=== PATIENT | male | born 1980 | race Caucasian/White ===

== ENCOUNTER → 2016-08-02 | Outpatient (CLI) | payer OTHER ==
[2016-08-02 10:05] LABS: Basophils % (A) 1 %; CH 31.5; CHCM 34.6; Eosinophils # (A) 0.1 k/uL (0-0.7); Eosinophils % (A) 3 %; HCT 44.3 % (39.0-53.0); HDW 2.83; HGB 14.8 gm/dL (13.0-17.5); Luc # (Auto) 0.08; Luc % (Auto) 3; Lymphocytes # (A) 1.2 k/uL (1.0-4.8); Lymphocytes % (A) 37 %; MCH 30.6 pg (25.0-35.0); MCHC 33.5 g/dL (31.0-37.0); MCV 91.4 fL (80.0-100.0); Mean Platelet Volume 7.7; Monocytes # (A) 0.3 k/uL (0-1.0); Monocytes % (A) 8 %; Neutrophils # (A) 1.6 k/uL (1.3-7.7); Neutrophils % (A) 49 %; RBC 4.85 m/uL (4.30-5.90); RDW 12.7 % (11.5-15.5); WBC 3.3 k/uL (3.8-10.6); WBC (Perox) 3.42
[2016-08-02 10:40] LABS: ALT 64 U/L (21-72); AST 32 U/L (17-59); Alkaline Phosphatase 63 U/L (38-126); Anion Gap 11 mmol/L; Blood Urea Nitrogen 16 mg/dL (9-20); Calcium 9.2 mg/dL (8.4-10.2); Carbon Dioxide 29 mmol/L (22-30); Chloride 104 mmol/L (98-107); Cholesterol 115 mg/dL (<200); Glucose 96 mg/dL (74-99); HDL Cholesterol 32 mg/dL (40-60); Non-African American GFR(MDRD) >60 (>60 ml/min/1.73 sqM); Potassium 4.2 mmol/L (3.5-5.1); Sodium 144 mmol/L (137-145); Total Bilirubin 0.9 mg/dL (0.2-1.3); Total Protein 7.6 g/dL (6.3-8.2); Triglycerides 128 mg/dL (<150)
[2016-08-03 00:50] LABS: Treponemal Ab Reactive (Non-Reactive)
== END | disposition home or self-care (01) ==
LOC: LABWHC1 09:09
PROVIDERS: ATTEND Family Medicine
DX: Z00.00 Encounter for general adult medical examination without abnormal findings (principal); M54.30 Sciatica, unspecified side; B20 Human immunodeficiency virus [HIV] disease
CPT/HCPCS: 36415; 80053; 80061; 84439; 84443; 85025; 86780

== ENCOUNTER 2018-06-21 18:49 | Emergency (ER) | payer OTHER ==
[2018-06-21 20:39] LABS: Cocaine Screen,Urine Not Detected (NotDetected); Phencyclidine Screen,Urine Not Detected (NotDetected); Urn Cannabinoid Scrn Not Detected (NotDetected)
[2018-06-21 20:40] LABS: Amphetamine Screen,Urine Detected (NotDetected); Barbiturate Screen,Urine Not Detected (NotDetected); Benzodiazepines Screen,Urine Not Detected (NotDetected); Methadone Screen, Urine Not Detected (NotDetected); Opiate Screen,Urine Not Detected (NotDetected); Oxycodone Screen, Urine Not Detected (NotDetected); Tricyclic Antidepressant,Urine Not Detected (NotDetected)
--- NOTE | 2018-06-21 21:07 | ED ---
Psych HPI - General Source: patient, EMS Mode of arrival: EMS <Briana Spann - Last Filed: 06/21/18 21:04> <Justo Crespo - Last Filed: 06/22/18 01:48> - General Chief Complaint: Psychiatric Symptoms Stated Complaint: Mental health Time Seen by Provider: 06/21/18 18:51 - History of Present Illness Initial Comments: 38-year-old male patient presents to the emergency department today for evaluation after arriving to work and acting bizarrely. Patient's coworkers reported that he was rambling and acting very hyper. Upon arrival patient does admit to use of methamphetamines however says last use was yesterday. Patient states that there are men trying to kidnap him however no one believes someone they tell him. He states that they are trying to kidnap him and use him for human trafficking. Mother is present with patient and she reports that he has been very paranoid, covering all this television screen stating that people are watching him. He shows her normal emails and states they are code that the kidnap is reason to communicate with each other in order to kidnap him. He believes that the neighbors are in on the scheme and he does not want to go home. She states this has been going on for the last week or 2. Patient denies any current physical symptoms or concerns. States he feels well overall. States that this is really happening he has Y no one will believe him. Denies any use of other street drugs. Denies any alcohol use. Denies any history of suicidal ideation or attempt. Denies any previous inpatient admissions. Patient denies any recent rash, fever, chills, shortness breath, chest pain, abdominal pain, nausea, vomiting, diarrhea, constipation, back pain , numbness, tingling, dizziness, weakness, hematuria, dysuria, urinary urgency, urinary frequency, headache, visual changes, or any other complaints. (Briana Spann) - Related Data Home Medications Medication Instructions Recorded Confirmed Elviteg/July/Emtric/Tenofo Dis 1 tab PO DAILY 06/21/18 06/21/18 [Stribild Tablet] Omeprazole 20 mg PO DAILY 06/21/18 06/21/18 Allergies Allergy/AdvReac Type Severity Reaction Status Date / Time No Known Allergies Allergy Verified 06/21/18 19:59 Review of Systems ROS Other: All systems not noted in ROS Statement are negative. <Briana Spann Mark - Last Filed: 06/21/18 21:04> ROS Other: All systems not noted in ROS Statement are negative. <Justo Crespo - Last Filed: 06/22/18 01:48> ROS Statement: Those systems with pertinent positive or pertinent negative responses have been documented in the HPI. Past Medical History Additional Past Medical History / Comment(s): HIV positive History of Any Multi-Drug Resistant Organisms: MRSA Past Surgical History: No Surgical Hx Reported Past Psychological History: No Psychological Hx Reported Smoking Status: Never smoker Past Alcohol Use History: Occasional Past Drug Use History: Methamphetamine <Briana Spann - Last Filed: 06/21/18 21:04> General Exam Limitations: no limitations General appearance: alert, in no apparent distress, other (Physical well- developed, well-nourished adult male patient in no acute distress. Vital signs upon presentation are temperature 98.4F, pulse 107, respirations 18, blood pressure 159/101, pulse ox 97% on room air.) Eye exam: Present: normal appearance, PERRL, EOMI. Absent: scleral icterus, conjunctival injection, periorbital swelling ENT exam: Present: normal exam, normal oropharynx, mucous membranes moist Respiratory exam: Present: normal lung sounds bilaterally. Absent: respiratory distress, wheezes, rales, rhonchi, stridor Cardiovascular Exam: Present: normal rhythm, tachycardia, normal heart sounds. Absent: systolic murmur, diastolic murmur, rubs, gallop, clicks GI/Abdominal exam: Present: soft, normal bowel sounds. Absent: distended, tenderness, guarding, rebound, rigid Neurological exam: Present: alert, oriented X3, CN II-XII intact Psychiatric exam: Present: normal mood, agitated, anxious, other (Delusional). Absent: normal affect, homicidal ideation, suicidal ideation Skin exam: Present: warm, dry, intact, normal color. Absent: rash <Briana Spann - Last Filed: 06/21/18 21:04> Vital Signs 06/21/18 06/21/18 18:58 22:18 Temperature 98.4 F Pulse Rate 107 H 76 Respiratory 18 18 Rate Blood Pressure 159/101 146/90 O2 Sat by Pulse 97 98 Oximetry - Lab Data Lab Results 06/21/18 Range/Units 20:05 Urine Opiates Screen Not Detected (NotDetected) Ur Oxycodone Screen Not Detected (NotDetected) Urine Methadone Screen Not Detected (NotDetected) Ur Propoxyphene Screen Not Detected (NotDetected) Ur Barbiturates Screen Not Detected (NotDetected) U Tricyclic Antidepress Not Detected (NotDetected) Ur Phencyclidine Scrn Not Detected (NotDetected) Ur Amphetamines Screen Detected H (NotDetected) U Methamphetamines Scrn Detected H (NotDetected) U Benzodiazepines Scrn Not Detected (NotDetected) Urine Cocaine Screen Not Detected (NotDetected) U Marijuana (THC) Screen Not Detected (NotDetected) Disposition <Briana Spann - Last Filed: 06/21/18 21:04> Is patient prescribed a controlled substance at d/c from ED?: No <Justo Crespo - Last Filed: 06/22/18 01:48> Clinical Impression: Love, Methamphetamine abuse Disposition: HOME SELF-CARE Condition: Good Instructions: Mood Disorders (ED), Methamphetamine Abuse (ED) Referrals: None,Stated [Primary Care Provider] - 1-2 days
[2018-06-22 02:12] VITALS: BP 124/81; PULSE 80; RESP 16; TEMP 97.9
== END 2018-06-22 02:16 | disposition home or self-care (01) ==
LOC: EC 18:49
DX: F15.10 Other stimulant abuse, uncomplicated (principal); F30.9 Manic episode, unspecified; Z21 Asymptomatic human immunodeficiency virus [HIV] infection status; Z86.14 Personal history of Methicillin resistant Staphylococcus aureus infection; Z79.899 Other long term (current) drug therapy
CPT/HCPCS: 80306; 99284

== ENCOUNTER 2019-08-28 09:40 | Day surgery (SDC) | payer OTHER ==
[2019-08-27 09:07] VITALS: BMI 27.8
[~2019-08-28 09:40] MED LIST: LACTATED RINGERS 1,000 ML IV SCH; LIDOCAINE 1% (10MG/ML) FOR IV START INTRADERMA PRN
[2019-08-28] MEDS ORDERED: LIDOCAINE 1% INJ 10MG/ML (20 ML MDV) ONE (10:18)
[2019-08-28] MEDS ORDERED: MIDAZOLAM 2 MG/2 ML VIAL ONE (10:18)
[2019-08-28 10:19] VITALS: TEMP 97.8
--- NOTE | 2019-08-28 10:33 | P.PCN ---
Date of Procedure: 08/28/19 Procedure(s) Performed: BRIEF HISTORY: Patient is a 39-year-old, pleasant, male, scheduled for an upper endoscopy as a part of evaluation of history of GERD and intermittent dysphagia to solids for the last 2 years duration. Patient has history of HIV. PROCEDURE PERFORMED: Esophagogastroduodenoscopy with biopsy. PREOPERATIVE DIAGNOSIS: Her/intermittent dysphagia to solids for 2 years duration. IV sedation per anesthesia. PROCEDURE: After informed consent was obtained, the patient was brought into the endoscopy unit. IV sedation was administered by Anesthesia under continuous monitoring. Initially the Olympus GIF-140 video endoscope was inserted into the mouth. Esophagus intubated without any difficulty. It was gradually advanced into the stomach and duodenum and carefully examined. The bulb and the second part of the duodenum appeared normal. The scope at this time was withdrawn to the stomach, adequately insufflated with air, and upon careful examination, mucosa of the antrum had multiple scattered erosions and biopsies were done from this area. The, body, cardia and the fundus appeared normal. The scope was then withdrawn into the esophagus. The GE junction was located at 45 cm from the incisors. It appeared regular with no erythema erosions or ulcerations. In the midesophagus there were 2 superficial elongated ulcerations at 32 cm and 35 cm from the incisors with exudates noted and multiple biopsies were done from this area. There was no obvious esophageal stricture identified. The rest of esophagus appeared normal and the patient tolerated the procedure well. IMPRESSION: 1. 2 superficial elongated ulcerations with exudates in the mid esophagus at 32-35 cm from the incisors, status post biopsies to rule out infectious esophagitis. 2. No obvious esophageal stricture. 3. Antral erosive gastritis RECOMMENDATIONS: The findings of this examination were discussed with the patient as well as his family. He was advised to follow with the biopsy results. In the meantime he will continue with omeprazole 20 mg daily and follow antireflux measures. He'll be seen in office in 2 weeks.
[2019-08-28 10:35] VITALS: RESP 16
[2019-08-28 11:09] VITALS: BP 135/96; PULSE 75
== END 2019-08-28 11:23 | disposition home or self-care (01) ==
LOC: ORWHC2ENDO 09:40
PROVIDERS: ATTEND Internal Medicine Gastroenterology
DX: K29.50 Unspecified chronic gastritis without bleeding (principal); K22.10 Ulcer of esophagus without bleeding; K21.0 Gastro-esophageal reflux disease with esophagitis; Z21 Asymptomatic human immunodeficiency virus [HIV] infection status; Z79.899 Other long term (current) drug therapy
CPT/HCPCS: 88305; 88312; 43239; J2250; J2001